=== PATIENT | male | born 1945 | race Caucasian/White ===

== ENCOUNTER → 2021-01-29 11:04 | Outpatient (BNVA) | payer MEDICARE, MEDICAID, SELFPAY | PROVIDERS: Family Provider Family Medicine; PCP Registered Nurse; Visit Provider Registered Nurse | DX: E78.5 Hyperlipidemia, unspecified (principal); I10 Essential (primary) hypertension; J44.9 Chronic obstructive pulmonary disease, unspecified; J30.2 Other seasonal allergic rhinitis | CPT/HCPCS: 80053; 80061; 85025 ==

== ENCOUNTER → 2021-01-31 09:22 | Outpatient (BNVA) | payer MEDICARE, MEDICAID, SELFPAY | PROVIDERS: Family Provider Family Medicine; PCP Registered Nurse; Visit Provider Registered Nurse | DX: R89.9 Unspecified abnormal finding in specimens from other organs, systems and tissues (principal) | CPT/HCPCS: 36416; 82962 ==

== ENCOUNTER → 2021-02-04 08:51 | Outpatient (BNVA) | payer MEDICARE, MEDICAID, SELFPAY | PROVIDERS: Family Provider Family Medicine; PCP Registered Nurse; Visit Provider Registered Nurse | DX: R73.9 Hyperglycemia, unspecified (principal) | CPT/HCPCS: 83036 ==

== ENCOUNTER → 2022-02-21 09:54 | Outpatient (BNVA) | payer MEDICARE, MEDICAID, SELFPAY | PROVIDERS: Family Provider Family Medicine; PCP Registered Nurse; Visit Provider Internal Medicine | DX: I73.9 Peripheral vascular disease, unspecified (principal); I10 Essential (primary) hypertension; E66.9 Obesity, unspecified; Z68.30 Body mass index [BMI] 30.0-30.9, adult; J42 Unspecified chronic bronchitis; Z95.5 Presence of coronary angioplasty implant and graft; E78.5 Hyperlipidemia, unspecified; F17.210 Nicotine dependence, cigarettes, uncomplicated; Z79.82 Long term (current) use of aspirin | CPT/HCPCS: 99214 ==

== ENCOUNTER → 2022-04-07 14:42 | Outpatient (BNVA) | payer MEDICARE, MEDICAID, SELFPAY | PROVIDERS: Family Provider Family Medicine; PCP Registered Nurse; Visit Provider Internal Medicine Critical Care Medicine | DX: C34.90 Malignant neoplasm of unspecified part of unspecified bronchus or lung (principal); J44.9 Chronic obstructive pulmonary disease, unspecified; F17.210 Nicotine dependence, cigarettes, uncomplicated; I10 Essential (primary) hypertension; K21.9 Gastro-esophageal reflux disease without esophagitis; E78.5 Hyperlipidemia, unspecified | CPT/HCPCS: 99204 ==

== ENCOUNTER 2022-04-15 05:34 | Day surgery (SDC) | payer MEDICARE, MEDICAID, SELFPAY ==
[2022-04-14 13:55] VITALS: BMI 29.0
[2022-04-15 06:13] VITALS: BP 139/80; PULSE 58; RESP 20; TEMP 36.3; O2SAT 95
--- NOTE | 2022-04-15 06:20 | ECG_ITS ---
[facility] Test Date: 2022-04-15 Pat Name: Palma Barraza Department: Room: Gender: Male [employer]visor [employer]: : [id number] Requested By: Bert Goss Order Number: [id number] Chuck MD: Georgina Bailey M.D. Measurements Intervals [place] Rate: 54 P: 29 SC: 300 QRS: -36 QRSD: 135 T: 147 QT: 440 QTc: 421 Interpretive Statements SINUS BRADYCARDIA WITH FIRST DEGREE AV BLOCK LEFT AXIS DEVIATION [QRS AXIS < -30] INTRAVENTRICULAR CONDUCTION DELAY [130+ ms QRS DURATION] POSSIBLE ANTERIOR MYOCARDIAL INFARCTION , OF INDETERMINATE AGE [30 ms Q WAVE IN V3/V4, OR R < 0.2 mV IN V4] No previous ECG available for comparison Electronically Signed On 04-15-2022 22:32:55 CDT by Georgina Bailey M.D. [id number]
[2022-04-15] MEDS: sodium chloride 0.9% 1,000 ML 30 ML IV (06:23)
[2022-04-15 06:49] LABS: Blood Urea Nitrogen 32 mg/dL (8-23); Calcium 9.3 mg/dL (8.5-10.5); Carbon Dioxide 24 mmol/L (22-29); Chloride 100 mmol/L (98-107); Glucose 139 mg/dL (65-115); Osmolality Calculated 289 mOsm/kg (285-295); Sodium 135 mmol/L (136-145)
--- NOTE | 2022-04-15 06:56 | ANES.PREANE2 ---
Pre-Anesthetic Assessment Height/Weight: Height 1.8 m Weight 94.347 kg Temp Pulse Resp BP Pulse Ox 97.3 F L 58 L 20 H 139/80 95 04/15/22 06:13 04/15/22 06:13 04/15/22 06:13 04/15/22 06:13 04/15/22 06:13 Preop Diagnosis: Left hilar mass Operation Date: 04/15/22 07:00 Proposed Procedures p Bronch,EBUS, 08123, 73178, 17314, 97755, 13196,R91.8(Not Applicable) - Blossom Dougherty MD s Ebus(Not Applicable) - Blossom Dougherty MD Familial anesthetic complications: none Was Beta Davy taken within 24 hours: Yes Was Clonidine taken within 24 hours: N/A Last intake: Intake Last Liquid Date 04/14/22 Last Liquid Time 18:30 Last Solid Date 04/14/22 Last Solid Time 09:00 Social Tobacco and No alcohol 1-2ppd pack(s) per day 50+ pack years Exam alert, oriented x 3, clear to auscultation bilaterally (course and wheezes bilaterally) and regular rate & rhythm Airway Submandibular: within normal limits Cervical ROM: within normal limits Mallampati: Class II Dentition: chipped, loose (poor dentention. Multiple missing upper and lower) and partials (upper) Pulmonary Chronic Obstructive Pulmonary Disease, Cough, Exertional Dyspnea, Othopnea and Shortness of Breath no home 02. Lung mass CV/HEM Stable Angina, Coronary Artery Disease, Hypertension and Myocardial Infarction (Ptca 2009. Seen PCP Thursday. Seen doctor of [facility]rapath[facility] medicine 2 months ago) None reported Hepatic None reported GI Gastroesophageal Reflux Disease (controlled) Metabolic Diabetes Mellitus (diet controlled) and Morbid Obesity [facility] [place] [facility] None reported Anesthetic Plan ASA status: 4 Anesthesia: General Risk of > 500 ml blood loss (7ml/kg in children): No Medications/Allergies Home Medications Medication Instructions Recorded Confirmed Last Taken Type aspirin 81 mg tablet,delayed 81 mg PO BID tab 04/17/20 04/14/22 Unknown History release (Adult Low Dose Aspirin) omega-3 fatty acids 1,000 mg 1,000 mg PO DAILY 04/17/20 04/15/22 04/13/22 History capsule (Fish Oil Concentrate) amlodipine 10 mg tablet 10 mg PO DAILY 05/10/21 04/14/2222 History furosemide 20 mg tablet 20 mg PO DAILY #90 tab 07/24/21 04/14/22 Unknown Rx lisinopril 40 mg tablet 40 mg PO DAILY 90 Days #90 tab 07/24/21 04/14/22 04/14/22 Rx chlorthalidone 25 mg tablet See Rx Instructions .ROUTE 11/05/21 04/14/22 Unknown Rx .COMPLEX #90 tab ipratropium 20 mcg-albuterol 100 1 puff INHALATION QID #4 g 03/31/22 04/14/22 04/15/22 Rx mcg/actuation mist for inhalation (Combivent Respimat) niacin 750 mg tablet,extended 750 mg PO BID tab 04/07/22 04/15/22 04/14/22 History release docusate sodium 100 mg capsule 100 mg PO DAILY 90 Days #90 cap 04/11/22 04/14/22 Unknown Rx (Colace) tramadol 50 mg tablet 50 mg PO BID PRN 30 Days #60 tab 04/11/22 04/14/22 Unknown Rx esomeprazole magnesium 40 mg 40 mg PO DAILY 04/15/22 04/15/22 Unknown History capsule,delayed release ezetimibe 10 mg tablet 10 mg PO DAILY 04/15/22 04/15/22 Unknown History fluticasone furoate 100 1 inh INHALATION DAILY 04/15/22 04/15/22 Unknown History mcg-vilanterol 25 mcg/dose inhalation powder (Breo Ellipta) hydrocodone 5 mg-acetaminophen 325 1 tab PO QID PRN 04/15/22 04/15/22 04/11/22 History mg tablet propranolol 60 mg tablet 60 mg PO BID 04/15/22 04/15/22 04/15/22 History sildenafil 100 mg tablet 100 mg PO DAILY PRN 04/15/22 04/15/22 04/14/22 History Allergies Allergy/AdvReac Type Severity Reaction Status Date / Time No Known Allergies Allergy Verified 04/11/22 08:13 Current Medications Generic Name Dose Route Start Last Admin Trade Name Freq PRN Reason Stop Dose Admin Sodium Chloride 1,000 mls @ 30 mls/hr 04/15/22 05:45 04/15/22 06:23 Sodium Chloride 0.9% IV 04/16/22 05:44 30 mls/hr .Q24H MARIANA Administration PFSH Anesthesia Medical History COPD (chronic obstructive pulmonary disease) Erectile disorder due to medical condition in male GERD (gastroesophageal reflux disease) HTN (hypertension) Hyperlipidemia Myocardial infarction Obesity Peripheral arterial disease Seasonal allergies Seasonal allergies Statin intolerance Tobacco abuse Surgical History History of coronary artery stent placement Social History Smoking and tobacco status: current every day smoker (1ppd) cigarettes Packs smoked per day: 3 Years cigarettes smoked: 56 [ Other cigarette details: Currently smoking 1 ppd] Marital status: Legally service: No Current occupational status: retired Data Anesthesia : 04/15/22 06:20 BMP 04/15/22 06:20 Chloride 100 Carbon Dioxide 24 Creatinine 1.2 Calcium 9.3 Cardiac Studies: No Data to Display
--- NOTE | 2022-04-15 06:57 | W.PM.OPSUD ---
Surgery/Procedure H&P Update DATE OF PROCEDURE: April 15, 2022 DATE H&P PERFORMED: 04/07/22 CHANGES TO PREVIOUS DOCUMENTATION: None PREOP DIAGNOSIS: Left hilar mass PRIMARY INDICATION FOR PROCEDURE: This is a 76-year-old gentleman with recent identified left hilar lung mass coming in for bronchoscopic evaluation. PLANNED PROCEDURE: Bronchoscopy inspection of the airway, possible endobronchial biopsies, bronchoalveolar lavage, endobronchial sound guided transbronchial needle aspiration of lymph nodes and control of bleeding Operation Date: 04/15/22 07:00 Proposed Procedures p Bronch,EBUS, 89546, 99479, 00827, 49853, 00129,R91.8(Not Applicable) - Blossom Dougherty MD s Ebus(Not Applicable) - Blossom Dougherty MD
[2022-04-15] MEDS: lidocaine 1% INJ 20 mL XX (07:30)
--- NOTE | 2022-04-15 08:14 | PM.OP ---
Operative Report Date of procedure: April 15, 2022 Pre-op diagnosis: Preop Diagnosis Left hilar mass Post-op diagnosis: Lung cancer Brief History: This is a 76-year-old gentleman with left hilar lung mass and evidence of metastatic disease coming in for bronchoscopic evaluation. Procedure: Name of the procedure: Bronchoscopy with inspection of the airway, bronchoalveolar lavage, endobronchial biopsies, endobronchial ultrasound-guided transbronchial needle aspiration of lymph nodes and control of bleeding. Indication: Left hilar lung mass suspicious of malignancy. Anesthesia: General anesthesia. Local anesthesia: The vocal cords, trachea, smiley and the right and left mainstem bronchi were anesthetized with 1% lidocaine, 8 mL. Description of the procedure: The procedure was explained to the patient and the consent was obtained. The patient was brought to the OR. The patient underwent laryngeal mask airway placement for general anesthesia. Following induction of general anesthesia, the bronchoscope was advanced through the LMA. The vocal cords were normal. The vocal cords were anesthetized with 1% lidocaine. 3 mL was used. The bronchoscope was advanced through the vocal cords under direct visualization. The upper and lower trachea are normal.The smiley was sharp. The trachea, smiley, the right and left mainstem bronchi are anesthetized with 1% lidocaine. In a systematic manner bilateral bronchial tree was then examined. The bronchoscope was advanced into the left mainstem bronchus. There was irregularity in the left upper lobe segmental bronchi. There was some irregularity in the lingular segment as well. The left lower lobe bronchus was normal and there was no endobronchial abnormalities in the segmental bronchi. The bronchoscope was then introduced into the right mainstem bronchus. The right upper lobe, right middle lobe and right lower lobe bronchi were examined up to the third subsegmental level and no abnormalities were identified. There was mild mucus throughout the airways. Endobronchial biopsies were performed from the left upper lobe endobronchial irregularities. Multiple samples were obtained. Bronchial wash was performed from the left upper lobe bronchus. A total of 40 cc was instilled, fluid return was 10 cc. The endobronchial ultrasound was introduced through the LMA. Left hilar lung mass was easily identified. There was lymphadenopathy involving 4L, station 7 lymph nodes as well. Multiple samples were obtained from the subcarinal lymph node. The rapid onsite evaluation was positive for malignancy. Samples: 1. Bronchoalveolar lavage specimen was sent for cytology. 2. The endobronchial biopsies are sent for histopathology. 3. The transbronchial biopsies are sent for histopathology. Complications: There was no immediate complications.
[2022-04-15 08:20] VITALS: BP 126/75; PULSE 64; RESP 18; TEMP 36.3; O2SAT 97
[2022-04-15 08:25] VITALS: BP 121/87; PULSE 59; RESP 18; O2SAT 97
[2022-04-15 08:30] VITALS: BP 128/67; PULSE 59; RESP 18; TEMP 36.2; O2SAT 92
[2022-04-15 08:35] VITALS: BP 125/65; PULSE 56; RESP 18; TEMP 36.3; O2SAT 94
[2022-04-15 08:50] VITALS: BP 128/56; PULSE 58; RESP 18; O2SAT 93
--- NOTE | 2022-04-15 14:11 | ANE.PACU2 ---
Inpatient post-anesthesia follow up: Airway intact: Yes Vital signs: Temperature 97.3 F Pulse Rate 58 Respiratory Rate 18 Blood Pressure 128/56 Pulse Oximetry 93 Oxygen Delivery Me thod Room Air Oxygen Flow Rate 2 Fraction of Inspir ed Oxygen Hydration adequate: Yes Nausea and vomiting: No Pain level: 2 Mental status: Baseline
[2022-04-15 21:57] LABS: Cyto Order Verification Order Verified
[2022-04-15 21:57] LABS: Cyto Order Verification Order Verified
[2022-04-15 21:58] LABS: Cyto Order Verification Order Verified
== END 2022-04-15 09:09 | disposition home or self-care (01) ==
PROVIDERS: Anesthesiology; Family Provider Family Medicine; PCP Registered Nurse; Visit Provider Internal Medicine Critical Care Medicine
PROC: BB4BZZZ Ultrasonography of Pleura (ICD-10-PCS; 2022-04-15 07:00)
PROC: 0BJ08ZZ Inspection of Tracheobronchial Tree, Via Natural or Artificial Opening Endoscopic (ICD-10-PCS; CPT 31622; 2022-04-15 07:00)
DX: R91.8 Other nonspecific abnormal finding of lung field (principal); F17.210 Nicotine dependence, cigarettes, uncomplicated; J44.9 Chronic obstructive pulmonary disease, unspecified; I25.10 Atherosclerotic heart disease of native coronary artery without angina pectoris; I10 Essential (primary) hypertension; I25.2 Old myocardial infarction; Z99.81 Dependence on supplemental oxygen; K21.9 Gastro-esophageal reflux disease without esophagitis; E66.01 Morbid (severe) obesity due to excess calories; Z68.29 Body mass index [BMI] 29.0-29.9, adult; Z79.82 Long term (current) use of aspirin
CPT/HCPCS: 31625; 31652; 36415; 80048; 80503; 88108; 88305; 88307; 88342; 93005; J2704; J7030